=== PATIENT | female | born 1930 | race Caucasian/White ===

== ENCOUNTER 2016-08-21 17:44 | Emergency (ER) | payer MEDICARE, OTHER ==
--- NOTE | 2016-08-21 18:22 | REP ---
Clinical: Trauma . Findings: A left posterior occipital scalp hematoma is identified without underlying fracture, hemorrhage or contrecoup injury. Age-related atrophy with periventricular leukomalacia and microvascular ischemic changes appreciated. The ventricles and sulci are symmetric. Mckeon-white differentiation is maintained. There is no evidence for acute intracranial hemorrhage, mass/mass effect, pathology or infarction. No extra-axial fluid collection. Calvarium is intact. Paranasal sinuses and mastoid air cells are clear. Impression: Age related atrophy and microvascular ischemic changes. No acute intracranial hemorrhage, infarction, or mass/mass effect. Left posterior occipital scalp hematoma. Signed by Chapin Bhandari MD 08/21/2016 06:13 P
--- NOTE | 2016-08-21 19:02 | EDDOCDS ---
Nurse's Notes [facility] Name: Roxann Saavedra Age: 85 yrs Sex: Female : 1930 Arrival Date: 08/21/2016 Time: 17:44 Bed 12 Private MD: Diagnosis: Unspecified injury of head;Abrasion of scalp;Contusion of scalp Presentation: 08/21 17:45 Presenting complaint: EMS states: Patient fell, two inch laceration to back of head, jmb controlled bleeding. Patient reports just falling. Presenting complaint: Patient states: Patient reports going to go to [email or web address], parked car, foreign collection clerk gave her good news and she hoped around and fell down. Adult Sepsis Screening: The patient does not have new or worsening altered mentation. Patient's respiratory rate is less than 22. Systolic blood pressure is greater than 100. Patient has a qSOFA score of 0- Negative Sepsis Screen. Suicide/Homicide risk assessment- the patient denies having any suicidal and/or homicidal ideations and does not present with any other emotional, behavioral or mental health complaints. Status: Patient is not a fleet service clerk or dependent. Transition of care: patient was not received from another setting of care. 17:45 Acuity: LUIS Level 4 [facility] 17:45 Method Of Arrival: Ambulance [facility] Triage Assessment: 17:49 General: Appears in no apparent distress, Behavior is appropriate for age, cooperative. b Pain: Denies pain. Neurological: Level of Consciousness is awake, alert, obeys commands, Oriented to person, place, time, Prenatal Teacher are equal bilaterally Speech is normal, Facial symmetry appears normal, Facial symmetry: tongue is midline. Cardiovascular: Capillary refill < 3 seconds Heart tones present Pulses are all present. Rhythm is regular. Respiratory: Airway is patent Respiratory effort is even, unlabored, Respiratory pattern is regular, symmetrical. GI: Abdomen is non- distended Bowel sounds present X 4 quads. Abd is soft and non tender X 4 quads. Derm: Skin laceration to posterior head Skin is pink, warm & dry. Musculoskeletal: Range of motion intact in all extremities. Historical: - Allergies: PENICILLINS; - Home Meds: 1. Benicar 20 mg oral tab 1 tab once daily 2. simvastatin 20 mg Oral tab 1 tab once daily 3. Vitamin D3 2,000 unit oral cap daily 4. multivitamin Oral cap 1 tablet daily 5. Calcium + Vitamin D 600 mg calcium- 200 unit Oral tab daily - PMHx: Hypertension; hyperlipidemia; - PSHx: Hysterectomy; Cataract Surgery- Bilateral; - Social history: Smoking status: Patient states was never smoker of tobacco. No barriers to communication noted, The patient speaks fluent Swedish, Speaks appropriately for age. - Family history: Not pertinent. - : The pt / caregiver states he / she is not on anticoagulants. Home medication list is obtained from the patient. - Exposure Risk Screening:: None identified. Screenin:15 Screening information is obtained from the patient. Fall risk: At risk due to prior b history of falls. Assistance ADL's: requires no assistance with activities of daily living. Abuse/DV Screen: The patient / caregiver reports he/she is: not in a situation that causes fear, pain or injury. Nutritional screening: No deficits noted. home support is adequate. 19:00 Advance Directives: Currently, there is no health care proxy. There is no active DNR jmb order. There is no living will. There is no Power of Car [place]. Assessment: 18:12 General: Appears in no apparent distress, comfortable, Behavior is appropriate for age, jmb cooperative. Pain: Denies pain. Neurological: Level of Consciousness is awake, alert, obeys commands, Oriented to person, place, time, Prenatal Teacher are equal bilaterally Speech is normal, Facial symmetry appears normal, Facial symmetry: tongue is midline. Cardiovascular: Capillary refill < 3 seconds Heart tones present Pulses are all present. Rhythm is regular. Respiratory: Airway is patent Respiratory effort is even, unlabored, Respiratory pattern is regular, symmetrical, Breath sounds are clear bilaterally. GI: Abdomen is non- distended Bowel sounds present X 4 quads. Abd is soft and non tender X 4 quads. Derm: Skin is pink, warm & dry. Musculoskeletal: Range of motion intact in all extremities. 19:00 General: Patient instructed on discharge instructions. Patient asked if there were any [facility] questions regarding discharge, patient stated no. Patient signed discharge instructions. Patient discharged in stable condition. . Vital Signs: 17:56 BP 196 / 88 RA Sitting (man/lg); Pulse 91; Resp 18; Temp 98.2(O); Pulse Ox 96% on R/A; jmb Weight 65.32 kg (R); Height 5 ft. 0 in. (152.40 cm) (R); Pain 0/10; 19:00 BP 188 / 86; Pulse 88; Resp 18; Temp 98.0(O); Pulse Ox 97% on R/A; Pain 0/10; jmb 17:56 Body Mass Index 28.12 (65.32 kg, 152.40 cm) [facility] Vitals: 17:49 Log In Time N/A - ambulance arrival. [facility] ED Course: 17:44 Patient visited by Beverley Rivero Dispenser Operator. deg 17:44 Patient moved to Waiting deg 17:45 Patient moved to 12 deg 17:47 Triage Initiated jmb 17:50 [facility]. ke 17:50 Patient visited by Tad Tamez FNP. ke 17:50 Patient visited by Tad Tamez FNP. ke 18:13 Patient visited by Rey Holloway RN. b 18:15 The patient / caregiver is instructed regarding the plan of care and ED course. b 18:15 No IV's were initiated during this patient's visit. No procedures done that require b assistance. 18:34 Patient visited by Tad Tamez FNP. ke 18:41 CT Head Without Contrast Returned. EDMS Order Results: Radiology Order: CT Head Without Contrast Test: CT Head Without Contrast REASON FOR EXAMINATION: Trauma; Clinical: Trauma .; ; Findings:; A left posterior occipital scalp hematoma is identified without underlying; fracture, hemorrhage or contrecoup injury.; ; Age-related atrophy with periventricular leukomalacia and microvascular ischemic; changes appreciated. The ventricles and sulci are symmetric. Mckeon-white; differentiation is maintained. There is no evidence for acute intracranial; hemorrhage, mass/mass effect, pathology or infarction. No extra-axial fluid; collection. Calvarium is intact. Paranasal sinuses and mastoid air cells are; clear.; ; Impression:; Age related atrophy and microvascular ischemic changes.; No acute intracranial hemorrhage, infarction, or mass/mass effect.; Left posterior occipital scalp hematoma.; ; ; Signed by; Chapin Bhandari MD 08/21/2016 06:13 P; Outcome: 18:55 Discharge ordered by Provider. ke 19:00 Discharge Assessment: Patient awake, alert and oriented x 3. No cognitive and/or jmb functional deficits noted. Patient verbalized understanding of disposition instructions. Patient awake and alert. obeys commands, Oriented to person, place and time. Patient verbalized understanding of disposition instructions. Patient has no functional deficits. patient administered narcotics - no. The following High Risk Discharge criteria are identified: None. Discharged to home ambulatory, with friend. Condition: stable Condition: improved. Discharge instructions given to patient, Instructed on discharge instructions, follow up and referral plans. medication usage, Demonstrated understanding of instructions, medications, Pt was receptive of discharge instructions/ teaching. Prescriptions given X 1. CT Study completed. Property sent home with patient. 19:02 Patient left the ED. melanie Signatures: Dispatcher MedHost EDBeverley Carballo, Dispenser Operator Unit deg Tad Tamez, BOX ANNEALER Rey Hood,RN RN melanie CELESTINA
--- NOTE | 2016-08-21 19:02 | EDDOCDS ---
Physician Documentation [facility] Name: Roxann Saavedra Age: 85 yrs Sex: Female : 1930 Arrival Date: 08/21/2016 Time: 17:44 Bed 12 Private MD: Disposition: 08/21/16 18:55 Discharged to Home/Self Care. Impression: Unspecified injury of head, Abrasion of scalp, Contusion of scalp. - Condition is Stable. - Discharge Instructions: Abrasion, Head Injury, Adult. - Prescriptions for Reglan 10 mg Oral Tablet - take 1 tablet by ORAL route every 6 hours take 30 minutes before meals and at bedtime; 20 tablet. - Medication Reconciliation, Local Pharmacy Hours form. - Follow up: Private Physician; When: 2 - 3 days; Reason: Recheck today's complaints, Continuance of care. - Problem is new. - Symptoms are unchanged. Historical: - Allergies: PENICILLINS; - Home Meds: 1. Benicar 20 mg oral tab 1 tab once daily 2. simvastatin 20 mg Oral tab 1 tab once daily 3. Vitamin D3 2,000 unit oral cap daily 4. multivitamin Oral cap 1 tablet daily 5. Calcium + Vitamin D 600 mg calcium- 200 unit Oral tab daily - PMHx: Hypertension; hyperlipidemia; - PSHx: Hysterectomy; Cataract Surgery- Bilateral; - Social history: Smoking status: Patient states was never smoker of tobacco. No barriers to communication noted, The patient speaks fluent Slovak, Speaks appropriately for age. - Family history: Not pertinent. - : The pt / caregiver states he / she is not on anticoagulants. Home medication list is obtained from the patient. - Exposure Risk Screening:: None identified. Vital Signs: 08/21 17:56 BP 196 / 88 RA Sitting (man/lg); Pulse 91; Resp 18; Temp 98.2(O); Pulse Ox 96% on R/A; b Weight 65.32 kg / 144.01 lbs (R); Height 5 ft. 0 in. (152.40 cm) (R); Pain 0/10; 19:00 BP 188 / 86; Pulse 88; Resp 18; Temp 98.0(O); Pulse Ox 97% on R/A; Pain 0/10; b 17:56 Body Mass Index 28.12 (65.32 kg, 152.40 cm) melanie MDM: 18:01 CT Head Without Contrast Ordered. EDMS 18:53 Financial registration complete. [email or web address] Signatures: Dispatcher MedHost EDMS Tad Tamez, CLAYTON OSORIOP Rey Zapien,Cathleen Silvestre RN, Reg Reg ks16 MTDD
--- NOTE | 2016-08-23 20:03 | EDDOCDS ---
Physician Documentation [facility] Name: Roxann Saavedra Age: 85 yrs Sex: Female : 1930 Arrival Date: 08/21/2016 Time: 17:44 Bed 12 Private MD: Disposition: 08/21/16 18:55 Discharged to Home/Self Care. Impression: Unspecified injury of head, Abrasion of scalp, Contusion of scalp. - Condition is Stable. - Discharge Instructions: Abrasion, Head Injury, Adult. - Prescriptions for Reglan 10 mg Oral Tablet - take 1 tablet by ORAL route every 6 hours take 30 minutes before meals and at bedtime; 20 tablet. - Medication Reconciliation, Local Pharmacy Hours form. - Follow up: Private Physician; When: 2 - 3 days; Reason: Recheck today's complaints, Continuance of care. - Problem is new. - Symptoms are unchanged. Historical: - Allergies: PENICILLINS; - Home Meds: 1. Benicar 20 mg oral tab 1 tab once daily 2. simvastatin 20 mg Oral tab 1 tab once daily 3. Vitamin D3 2,000 unit oral cap daily 4. multivitamin Oral cap 1 tablet daily 5. Calcium + Vitamin D 600 mg calcium- 200 unit Oral tab daily - PMHx: Hypertension; hyperlipidemia; - PSHx: Hysterectomy; Cataract Surgery- Bilateral; - Social history: Smoking status: Patient states was never smoker of tobacco. No barriers to communication noted, The patient speaks fluent Serbian, Speaks appropriately for age. - Family history: Not pertinent. - : The pt / caregiver states he / she is not on anticoagulants. Home medication list is obtained from the patient. - Exposure Risk Screening:: None identified. Vital Signs: 08/21 17:56 BP 196 / 88 RA Sitting (man/lg); Pulse 91; Resp 18; Temp 98.2(O); Pulse Ox 96% on R/A; b Weight 65.32 kg / 144.01 lbs (R); Height 5 ft. 0 in. (152.40 cm) (R); Pain 0/10; 19:00 BP 188 / 86; Pulse 88; Resp 18; Temp 98.0(O); Pulse Ox 97% on R/A; Pain 0/10; b 17:56 Body Mass Index 28.12 (65.32 kg, 152.40 cm) melanie MDM: 18:01 CT Head Without Contrast Ordered. EDMS 18:53 Financial registration complete. [email or web address] 19:08 [facility] Payment Agreement was scanned into Smart Cube and attached to record. [email or web address] :41 T-Sheet-- Draft Copy was scanned into MEDHOST and attached to record. klr Signatures: Dispatcher [employer] EDMS Tad Tamez, INTERNAL MEDICINE PHYSICIAN ASSISTANT INTERNAL MEDICINE PHYSICIAN ASSISTANT Rey Zapien RN RN Cathleen Allison, Reg Reg ks16 Elizabeth Perez klr The chart was reviewed and I authenticate all verbal orders and agree with the evaluation and treatment provided.Attachments: 19:08 [facility] Payment Agreement [email or web address] :41 T-Sheet-- Draft Copy klr Chart Complete MTDD
--- NOTE | 2016-08-23 20:03 | EDDOCDS ---
Physician Documentation [facility] Name: Roxann Saavedra Age: 85 yrs Sex: Female : 1930 Arrival Date: 08/21/2016 Time: 17:44 Bed 12 Private MD: Disposition: 08/21/16 18:55 Discharged to Home/Self Care. Impression: Unspecified injury of head, Abrasion of scalp, Contusion of scalp. - Condition is Stable. - Discharge Instructions: Abrasion, Head Injury, Adult. - Prescriptions for Reglan 10 mg Oral Tablet - take 1 tablet by ORAL route every 6 hours take 30 minutes before meals and at bedtime; 20 tablet. - Medication Reconciliation, Local Pharmacy Hours form. - Follow up: Private Physician; When: 2 - 3 days; Reason: Recheck today's complaints, Continuance of care. - Problem is new. - Symptoms are unchanged. Historical: - Allergies: PENICILLINS; - Home Meds: 1. Benicar 20 mg oral tab 1 tab once daily 2. simvastatin 20 mg Oral tab 1 tab once daily 3. Vitamin D3 2,000 unit oral cap daily 4. multivitamin Oral cap 1 tablet daily 5. Calcium + Vitamin D 600 mg calcium- 200 unit Oral tab daily - PMHx: Hypertension; hyperlipidemia; - PSHx: Hysterectomy; Cataract Surgery- Bilateral; - Social history: Smoking status: Patient states was never smoker of tobacco. No barriers to communication noted, The patient speaks fluent Kiswahili, Speaks appropriately for age. - Family history: Not pertinent. - : The pt / caregiver states he / she is not on anticoagulants. Home medication list is obtained from the patient. - Exposure Risk Screening:: None identified. Vital Signs: 08/21 17:56 BP 196 / 88 RA Sitting (man/lg); Pulse 91; Resp 18; Temp 98.2(O); Pulse Ox 96% on R/A; b Weight 65.32 kg / 144.01 lbs (R); Height 5 ft. 0 in. (152.40 cm) (R); Pain 0/10; 19:00 BP 188 / 86; Pulse 88; Resp 18; Temp 98.0(O); Pulse Ox 97% on R/A; Pain 0/10; b 17:56 Body Mass Index 28.12 (65.32 kg, 152.40 cm) melanie MDM: 18:01 CT Head Without Contrast Ordered. EDMS 18:53 Financial registration complete. [email or web address] 19:08 [facility] Payment Agreement was scanned into ReferMe and attached to record. [email or web address] :41 T-Sheet-- Draft Copy was scanned into MEDHOST and attached to record. klr Signatures: Dispatcher [employer] EDMS Tad Tamez, FARM ASSISTANT FARM ASSISTANT Rey Zapien RN RN Cathleen Allison, Reg Reg ks16 Elizabeth Perez klr The chart was reviewed and I authenticate all verbal orders and agree with the evaluation and treatment provided.Attachments: 19:08 [facility] Payment Agreement [email or web address] :41 T-Sheet-- Draft Copy klr Chart Complete MTDD
--- NOTE | 2016-08-23 20:04 | EDDOCDS ---
Nurse's Notes [facility] Name: Roxann Saavedra Age: 85 yrs Sex: Female : 1930 Arrival Date: 08/21/2016 Time: 17:44 Bed 12 Private MD: Diagnosis: Unspecified injury of head;Abrasion of scalp;Contusion of scalp Presentation: 08/21 17:45 Presenting complaint: EMS states: Patient fell, two inch laceration to back of head, jmb controlled bleeding. Patient reports just falling. Presenting complaint: Patient states: Patient reports going to go to [email or web address], parked car, mobile mechanic gave her good news and she hoped around and fell down. Adult Sepsis Screening: The patient does not have new or worsening altered mentation. Patient's respiratory rate is less than 22. Systolic blood pressure is greater than 100. Patient has a qSOFA score of 0- Negative Sepsis Screen. Suicide/Homicide risk assessment- the patient denies having any suicidal and/or homicidal ideations and does not present with any other emotional, behavioral or mental health complaints. Status: Patient is not a service advisor or dependent. Transition of care: patient was not received from another setting of care. 17:45 Acuity: LUIS Level 4 [facility] 17:45 Method Of Arrival: Ambulance [facility] Triage Assessment: 17:49 General: Appears in no apparent distress, Behavior is appropriate for age, cooperative. b Pain: Denies pain. Neurological: Level of Consciousness is awake, alert, obeys commands, Oriented to person, place, time, Medical Reception Specialist are equal bilaterally Speech is normal, Facial symmetry appears normal, Facial symmetry: tongue is midline. Cardiovascular: Capillary refill < 3 seconds Heart tones present Pulses are all present. Rhythm is regular. Respiratory: Airway is patent Respiratory effort is even, unlabored, Respiratory pattern is regular, symmetrical. GI: Abdomen is non- distended Bowel sounds present X 4 quads. Abd is soft and non tender X 4 quads. Derm: Skin laceration to posterior head Skin is pink, warm & dry. Musculoskeletal: Range of motion intact in all extremities. Historical: - Allergies: PENICILLINS; - Home Meds: 1. Benicar 20 mg oral tab 1 tab once daily 2. simvastatin 20 mg Oral tab 1 tab once daily 3. Vitamin D3 2,000 unit oral cap daily 4. multivitamin Oral cap 1 tablet daily 5. Calcium + Vitamin D 600 mg calcium- 200 unit Oral tab daily - PMHx: Hypertension; hyperlipidemia; - PSHx: Hysterectomy; Cataract Surgery- Bilateral; - Social history: Smoking status: Patient states was never smoker of tobacco. No barriers to communication noted, The patient speaks fluent Italian, Speaks appropriately for age. - Family history: Not pertinent. - : The pt / caregiver states he / she is not on anticoagulants. Home medication list is obtained from the patient. - Exposure Risk Screening:: None identified. Screenin:15 Screening information is obtained from the patient. Fall risk: At risk due to prior b history of falls. Assistance ADL's: requires no assistance with activities of daily living. Abuse/DV Screen: The patient / caregiver reports he/she is: not in a situation that causes fear, pain or injury. Nutritional screening: No deficits noted. home support is adequate. 19:00 Advance Directives: Currently, there is no health care proxy. There is no active DNR jmb order. There is no living will. There is no Power of Tomato Paste Maker. Assessment: 18:12 General: Appears in no apparent distress, comfortable, Behavior is appropriate for age, jmb cooperative. Pain: Denies pain. Neurological: Level of Consciousness is awake, alert, obeys commands, Oriented to person, place, time, Medical Reception Specialist are equal bilaterally Speech is normal, Facial symmetry appears normal, Facial symmetry: tongue is midline. Cardiovascular: Capillary refill < 3 seconds Heart tones present Pulses are all present. Rhythm is regular. Respiratory: Airway is patent Respiratory effort is even, unlabored, Respiratory pattern is regular, symmetrical, Breath sounds are clear bilaterally. GI: Abdomen is non- distended Bowel sounds present X 4 quads. Abd is soft and non tender X 4 quads. Derm: Skin is pink, warm & dry. Musculoskeletal: Range of motion intact in all extremities. 19:00 General: Patient instructed on discharge instructions. Patient asked if there were any [facility] questions regarding discharge, patient stated no. Patient signed discharge instructions. Patient discharged in stable condition. . Vital Signs: 17:56 BP 196 / 88 RA Sitting (man/lg); Pulse 91; Resp 18; Temp 98.2(O); Pulse Ox 96% on R/A; jmb Weight 65.32 kg (R); Height 5 ft. 0 in. (152.40 cm) (R); Pain 0/10; 19:00 BP 188 / 86; Pulse 88; Resp 18; Temp 98.0(O); Pulse Ox 97% on R/A; Pain 0/10; jmb 17:56 Body Mass Index 28.12 (65.32 kg, 152.40 cm) [facility] Vitals: 17:49 Log In Time N/A - ambulance arrival. [facility] ED Course: 17:44 Patient visited by Beverley Rivero Seo Professional. deg 17:44 Patient moved to Waiting deg 17:45 Patient moved to 12 deg 17:47 Triage Initiated jmb 17:50 [facility]. ke 17:50 Patient visited by Tda Tamez FNP. ke 17:50 Patient visited by Tad Tamez FNP. ke 18:13 Patient visited by Rey Holloway RN. b 18:15 The patient / caregiver is instructed regarding the plan of care and ED course. [facility] 18:15 No IV's were initiated during this patient's visit. No procedures done that require b assistance. 18:34 Patient visited by Tad Tamez FNP. ke 18:41 CT Head Without Contrast Returned. EDMS 19:08 [facility] Payment Agreement was scanned into Slyce and attached to record. ks16 22:41 T-Sheet-- Draft Copy was scanned into Slyce and attached to record. klr Order Results: Radiology Order: CT Head Without Contrast Test: CT Head Without Contrast REASON FOR EXAMINATION: Trauma; Clinical: Trauma .; ; Findings:; A left posterior occipital scalp hematoma is identified without underlying; fracture, hemorrhage or contrecoup injury.; ; Age-related atrophy with periventricular leukomalacia and microvascular ischemic; changes appreciated. The ventricles and sulci are symmetric. Mckeon-white; differentiation is maintained. There is no evidence for acute intracranial; hemorrhage, mass/mass effect, pathology or infarction. No extra-axial fluid; collection. Calvarium is intact. Paranasal sinuses and mastoid air cells are; clear.; ; Impression:; Age related atrophy and microvascular ischemic changes.; No acute intracranial hemorrhage, infarction, or mass/mass effect.; Left posterior occipital scalp hematoma.; ; ; Signed by; Chapin Bhandari MD 08/21/2016 06:13 P; Outcome: 18:55 Discharge ordered by Provider. ronn 19:00 Discharge Assessment: Patient awake, alert and oriented x 3. No cognitive and/or jmb functional deficits noted. Patient verbalized understanding of disposition instructions. Patient awake and alert. obeys commands, Oriented to person, place and time. Patient verbalized understanding of disposition instructions. Patient has no functional deficits. patient administered narcotics - no. The following High Risk Discharge criteria are identified: None. Discharged to home ambulatory, with friend. Condition: stable Condition: improved. Discharge instructions given to patient, Instructed on discharge instructions, follow up and referral plans. medication usage, Demonstrated understanding of instructions, medications, Pt was receptive of discharge instructions/ teaching. Prescriptions given X 1. CT Study completed. Property sent home with patient. 19:02 Patient left the ED. melanie Signatures: Dispatcher MedHost EDMS Beverley Rivero, Seo Professional Unit deg Tad Tamez, ARMY HELICOPTER PILOT ARMY HELICOPTER PILOT Rey Zapien, RN RN Cathleen Allison, Reg Reg [email or web address] Elizabeth Perez Chart Complete CELESTINA
== END 2016-08-21 19:02 | disposition home or self-care (01) ==
LOC: M ED 17:44
DX: S00.93XA Contusion of unspecified part of head, initial encounter (principal); S00.91XA Abrasion of unspecified part of head, initial encounter; W01.0XXA Fall on same level from slipping, tripping and stumbling without subsequent striking against object, initial encounter; Y92.22 Religious institution as the place of occurrence of the external cause; Y93.9 Activity, unspecified; Y99.9 Unspecified external cause status; I10 Essential (primary) hypertension; E78.5 Hyperlipidemia, unspecified; Z79.899 Other long term (current) drug therapy; Z88.0 Allergy status to penicillin

== ENCOUNTER 2017-10-30 07:41 | Emergency (ER) | payer MEDICARE, OTHER | END 2017-10-30 08:34 | disposition home or self-care (01) | LOC: M ED 07:41 | DX: I10 Essential (primary) hypertension (principal); L21.9 Seborrheic dermatitis, unspecified; E78.5 Hyperlipidemia, unspecified; Z88.0 Allergy status to penicillin; Z91.018 Allergy to other foods; Z79.899 Other long term (current) drug therapy | CPT/HCPCS: 99282 ==

== ENCOUNTER 2018-04-30 08:19 | Emergency (ER) | payer MEDICARE, OTHER ==
[2018-04-30 09:17] LABS: BASO # 0.1 10^3/uL (0.0-0.2); BASO % 0.4 % (0.0-1.0); EOS # 0.5 10^3/uL (0.0-0.50); EOS % 2.8 % (0.0-3.0); HEMATOCRIT 35.8 % (36.0-47.0); IMMATURE GRANULOCYTE % 0.6 % (0-3.0); LYMPH # 1.1 10^3/uL (1.5-4.5); LYMPH % 6.6 % (24.0-44.0); MEAN CORPUSCULAR HEMOGLOBIN 31.6 pg (27.0-33.0); MEAN CORPUSCULAR HGB CONC 33.5 g/dl (32.0-36.5); MEAN CORPUSCULAR VOLUME 94.2 fl (80.0-96.0); MONO # 1.5 10^3/uL (0.0-0.8); NEUTROPHILS # 13.1 10^3/uL (1.8-7.7); NEUTROPHILS % 80.6 % (36.0-66.0); PLATELET COUNT, AUTOMATED 500 10^3/uL (150-450); RED CELL DISTRIBUTION WIDTH 12.2 % (11.5-14.5); WHITE BLOOD COUNT 16.2 10^3/uL (4.0-10.0)
[2018-04-30 09:25] LABS: ALBUMIN 3.3 GM/DL (3.2-5.2); ALBUMIN/GLOBULIN RATIO 0.89 (1.00-1.93); ALKALINE PHOSPHATASE 116 U/L (45-117); ALT/SGPT 11 U/L (12-78); AMYLASE 42 U/L (25-115); ANION GAP 9 MEQ/L (8-16); AST/SGOT 7 U/L (7-37); BILIRUBIN,DIRECT 0.1 MG/DL (0.0-0.2); BILIRUBIN,TOTAL 0.5 MG/DL (0.2-1.0); BLOOD UREA NITROGEN 14 MG/DL (7-18); CALCIUM LEVEL 8.7 MG/DL (8.8-10.2); CARBON DIOXIDE LEVEL 25 MEQ/L (21-32); CHLORIDE LEVEL 102 MEQ/L (98-107); CK-MB VALUE MASS < 1.0 NG/ML (<3.6); CPK CREATINE PHOSPHOKINASE 22 U/L (26-192); CREATININE FOR GFR 1.48 MG/DL (0.55-1.30); GLOMERULAR FILTRATION RATE 35.5 (>32); GLUCOSE, FASTING 108 MG/DL (70-100); LIPASE 120 U/L (73-393); MB/CK RELATIVE INDEX 4.55 (< OR =4); POTASSIUM SERUM 3.9 MEQ/L (3.5-5.1); SODIUM LEVEL 136 MEQ/L (136-145); TROPONIN I < 0.02 NG/ML (< 0.10)
[2018-04-30 09:28] LABS: LACTIC ACID SEPSIS PROTOCOL 1.4 MMOL/L (0.4-2.0)
[2018-04-30] MEDS: NS 1,000 ML IV (10:04)
[2018-04-30 10:50] LABS: AMORPHOUS SEDIMENT RFX MODERATE (NEGATIVE); KETONE, URINE AUTO RFX TRACE mg/dL (NEGATIVE); MUCUS, URINE RFX MODERATE (NEGATIVE); NITRITE, URINE AUTO RFX NEGATIVE (NEGATIVE); RBC, URINE AUTO RFX 1 /HPF (0-3); SPECIFIC GRAVITY UR AUTO RFX 1.017 (1.002-1.035); SQUAM EPITHELIAL CELL UR AURFX 26 /HPF (0-6)
[2018-04-30 11:15] LABS: LEUKOCYTE ESTERASE UR AUTO RFX TRACE (NEGATIVE); WBC, URINE AUTO RFX 12 /HPF (0-3)
[2018-04-30] MEDS ORDERED: ISOVUE-370 76% 100ML VIAL (Q9967) As Ordered (11:45)
== END 2018-04-30 13:31 | disposition home or self-care (01) ==
LOC: M ED 08:19
DX: K57.32 Diverticulitis of large intestine without perforation or abscess without bleeding (principal); K64.9 Unspecified hemorrhoids; N12 Tubulo-interstitial nephritis, not specified as acute or chronic; B37.3 Candidiasis of vulva and vagina; I10 Essential (primary) hypertension; E78.00 Pure hypercholesterolemia, unspecified; Z88.0 Allergy status to penicillin; Z91.018 Allergy to other foods; Z79.899 Other long term (current) drug therapy
CPT/HCPCS: Q9967

== ENCOUNTER → 2019-09-18 | Outpatient (CLI) | payer MEDICARE ==
[~2019-09-18] MED LIST: AMLO2.5T3 PO; B121000T PO; CALC600T60 PO; CIPR-249 PO; CLOT1CRE27 TOP; COQ-100C2 PO; CORT1OIN2 TOP; FLAG500T PO; FLUC150T PO; HYDR-3363 PO; KETO2CR EXT; LEVO500T3; METR0.7534; MUPI2OI; OLME40TA PO; PREP1CRE TP; SIMV20TA22 PO; VITA200016 PO
[2019-09-18 15:59] LABS: BASO # 0.1 10^3/uL (0.0-0.2); BASO % 0.8 % (0.0-1.0); EOS # 0.6 10^3/uL (0.0-0.5); EOS % 5.1 % (0.0-3.0); HEMATOCRIT 39.5 % (36.0-47.0); HEMOGLOBIN 12.9 g/dl (12.0-15.5); LYMPH # 1.5 10^3/uL (1.5-5.0); LYMPH % 12.6 % (24.0-44.0); MEAN CORPUSCULAR HEMOGLOBIN 30.1 pg (27.0-33.0); MEAN CORPUSCULAR HGB CONC 32.7 g/dl (32.0-36.5); MEAN CORPUSCULAR VOLUME 92.3 fl (80.0-96.0); MONO % 7.8 % (0.0-5.0); NEUTROPHILS # 8.9 10^3/uL (1.5-8.5); NEUTROPHILS % 73.4 % (36.0-66.0); PLATELET COUNT, AUTOMATED 951 10^3/uL (150-450); RED BLOOD COUNT 4.28 10^6/uL (4.00-5.40); WHITE BLOOD COUNT 12.2 10^3/uL (4.0-10.0)
== END ==
LOC: M LRY 14:43
PROVIDERS: ATTEND Physician Assistant
DX: M81.0 Age-related osteoporosis without current pathological fracture (principal); Z79.899 Other long term (current) drug therapy

== ENCOUNTER → 2019-09-20 | Outpatient (CLI) | payer MEDICARE ==
[2019-09-20 16:38] LABS: BASO # 0.1 10^3/uL (0.0-0.2); BASO % 0.6 % (0.0-1.0); EOS # 0.8 10^3/uL (0.0-0.5); EOS % 6.9 % (0.0-3.0); HEMATOCRIT 38.3 % (36.0-47.0); HEMOGLOBIN 12.4 g/dl (12.0-15.5); LYMPH # 1.7 10^3/uL (1.5-5.0); LYMPH % 14.2 % (24.0-44.0); MEAN CORPUSCULAR HEMOGLOBIN 29.9 pg (27.0-33.0); MEAN CORPUSCULAR HGB CONC 32.4 g/dl (32.0-36.5); MEAN CORPUSCULAR VOLUME 92.3 fl (80.0-96.0); MONO # 0.8 10^3/uL (0.0-0.8); MONO % 6.5 % (0.0-5.0); NEUTROPHILS # 8.6 10^3/uL (1.5-8.5); NEUTROPHILS % 71.3 % (36.0-66.0); PLATELET COUNT, AUTOMATED 947 10^3/uL (150-450); RED BLOOD COUNT 4.15 10^6/uL (4.00-5.40)
== END ==
LOC: M LRY 13:57
PROVIDERS: ATTEND Physician Assistant
DX: M81.0 Age-related osteoporosis without current pathological fracture (principal); I10 Essential (primary) hypertension

== ENCOUNTER → 2019-10-22 | Outpatient (CLI) | payer MEDICARE ==
[~2019-10-22] MED LIST changes: +HYDR500C3 PO; +NYSTOI TOP
[2019-10-22 17:31] LABS: BASO # 0.1 10^3/uL (0.0-0.2); EOS # 0.6 10^3/uL (0.0-0.5); HEMATOCRIT 39.7 % (36.0-47.0); LYMPH # 1.4 10^3/uL (1.5-5.0); LYMPH % 12.8 % (24.0-44.0); MEAN CORPUSCULAR HEMOGLOBIN 30.2 pg (27.0-33.0); MEAN CORPUSCULAR HGB CONC 32.7 g/dl (32.0-36.5); MEAN CORPUSCULAR VOLUME 92.1 fl (80.0-96.0); MONO # 0.6 10^3/uL (0.0-0.8); MONO % 6.1 % (0.0-5.0); NEUTROPHILS # 7.8 10^3/uL (1.5-8.5); NEUTROPHILS % 73.7 % (36.0-66.0); PLATELET COUNT, AUTOMATED 985 10^3/uL (150-450); RED BLOOD COUNT 4.31 10^6/uL (4.00-5.40); WHITE BLOOD COUNT 10.6 10^3/uL (4.0-10.0)
[2019-10-22 17:36] LABS: ALBUMIN 3.9 GM/DL (3.2-5.2); BILIRUBIN,TOTAL 0.5 MG/DL (0.2-1.0); CALCIUM LEVEL 9.8 MG/DL (8.8-10.2); CREATININE FOR GFR 1.68 MG/DL (0.55-1.30); GLOMERULAR FILTRATION RATE 30.6 (>32); POTASSIUM SERUM 4.7 MEQ/L (3.5-5.1); TOTAL PROTEIN 7.1 GM/DL (6.4-8.2)
== END ==
LOC: M LRY 10:51
PROVIDERS: ATTEND Internal Medicine Medical Oncology
DX: D69.6 Thrombocytopenia, unspecified (principal)

== ENCOUNTER → 2019-12-04 | Outpatient (CLI) | payer MEDICARE ==
[~2019-12-04] MED LIST changes: +ASPI81TA26 PO; +FLUC200T2 PO; +HYDR26CR TP; +HYDR500C PO; -PREP1CRE TP
[2019-12-04 12:38] LABS: BASO # 0.1 10^3/uL (0.0-0.2); BASO % 1.1 % (0.0-1.0); EOS # 0.5 10^3/uL (0.0-0.5); EOS % 6.5 % (0.0-3.0); HEMATOCRIT 37.2 % (36.0-47.0); HEMOGLOBIN 12.2 g/dl (12.0-15.5); LYMPH # 1.5 10^3/uL (1.5-5.0); LYMPH % 18.5 % (24.0-44.0); MEAN CORPUSCULAR HEMOGLOBIN 30.7 pg (27.0-33.0); MEAN CORPUSCULAR HGB CONC 32.8 g/dl (32.0-36.5); MEAN CORPUSCULAR VOLUME 93.7 fl (80.0-96.0); MONO # 0.7 10^3/uL (0.0-0.8); MONO % 8.4 % (0.0-5.0); NEUTROPHILS # 5.1 10^3/uL (1.5-8.5); PLATELET COUNT, AUTOMATED 607 10^3/uL (150-450); RED BLOOD COUNT 3.97 10^6/uL (4.00-5.40); WHITE BLOOD COUNT 7.8 10^3/uL (4.0-10.0)
[2019-12-04 13:08] LABS: BILIRUBIN,TOTAL 0.4 MG/DL (0.2-1.0); CALCIUM LEVEL 9.6 MG/DL (8.8-10.2); CREATININE FOR GFR 1.78 MG/DL (0.55-1.30); GLOMERULAR FILTRATION RATE 28.6 (>32); POTASSIUM SERUM 5.3 MEQ/L (3.5-5.1); TOTAL PROTEIN 7.3 GM/DL (6.4-8.2)
== END ==
LOC: M LRY 09:51
PROVIDERS: ATTEND Internal Medicine Medical Oncology
DX: D69.6 Thrombocytopenia, unspecified (principal)

== ENCOUNTER → 2020-01-01 | Outpatient (CLI) | payer MEDICARE ==
[~2020-01-01] MED LIST changes: +ANAG0.5C2 PO; +ASCO500T PO; +DOXY-350 PO; +HYDR-643 PO; +OLME20TA2 PO
[2020-01-01 16:59] LABS: BASO # 0.1 10^3/uL (0.0-0.2); BASO % 0.9 % (0.0-1.0); EOS # 0.6 10^3/uL (0.0-0.5); EOS % 7.6 % (0.0-3.0); HEMATOCRIT 33.4 % (36.0-47.0); LYMPH # 1.3 10^3/uL (1.5-5.0); LYMPH % 16.8 % (24.0-44.0); MEAN CORPUSCULAR HEMOGLOBIN 32.4 pg (27.0-33.0); MEAN CORPUSCULAR HGB CONC 32.9 g/dl (32.0-36.5); MEAN CORPUSCULAR VOLUME 98.5 fl (80.0-96.0); MONO # 0.6 10^3/uL (0.0-0.8); MONO % 7.1 % (0.0-5.0); NEUTROPHILS # 5.4 10^3/uL (1.5-8.5); NEUTROPHILS % 67.2 % (36.0-66.0); PLATELET COUNT, AUTOMATED 544 10^3/uL (150-450); RED BLOOD COUNT 3.39 10^6/uL (4.00-5.40); WHITE BLOOD COUNT 7.9 10^3/uL (4.0-10.0)
[2020-01-01 17:52] LABS: ALBUMIN 3.8 GM/DL (3.2-5.2); BILIRUBIN,TOTAL 0.5 MG/DL (0.2-1.0); CALCIUM LEVEL 9.5 MG/DL (8.8-10.2); CREATININE FOR GFR 1.62 MG/DL (0.55-1.30); GLOMERULAR FILTRATION RATE 31.8 (>32); POTASSIUM SERUM 5.1 MEQ/L (3.5-5.1); TOTAL PROTEIN 6.7 GM/DL (6.4-8.2)
== END ==
LOC: M LRY 13:01
PROVIDERS: ATTEND Internal Medicine Hematology & Oncology
DX: D69.6 Thrombocytopenia, unspecified (principal)

== ENCOUNTER → 2020-01-14 | Outpatient (REF) | payer MEDICARE, OTHER ==
[~2020-01-14] MED LIST changes: -ANAG0.5C2 PO; -ASCO500T PO; -HYDR-643 PO; -OLME20TA2 PO
== END ==
LOC: M LAB REF 18:39
PROVIDERS: ATTEND Dermatology
DX: L57.0 Actinic keratosis (principal)

== ENCOUNTER → 2020-03-12 | Outpatient (CLI) | payer MEDICARE, OTHER ==
[~2020-03-12] MED LIST changes: +ANAG0.5C2 PO; +ASCO500T PO; +HYDR-643 PO; +OLME20TA2 PO
--- NOTE | 2020-03-27 09:09 | REP ---
RENAL ULTRASOUND: 03/12/20 TECHNIQUE: Real time pina scale and color Doppler evaluation using curved array transducer. FINDINGS: The right kidney measures 7.1 x 3.6 x 2.8cm and appears echogenic with increased central sinus fat suggesting chronic renal disease. No hydronephrosis, nephrolithiasis, cystic or renal mass lesion. The left kidney measures 9.1 x 4.2 x 3.7cm with mildly increased central sinus fat. No hydronephrosis, nephrolithiasis, cystic or renal mass lesion. The bladder is unremarkable. Doppler interrogation demonstrates parvus tardus wave patterns bilaterally with normal renal aortic ratios. RIGHT KIDNEY: Peak renal artery velocity: 89 cm/s Renal aortic ratio: 1.7 Resistive indices: 0.61-0.70 Acceleration times: 0.022-0.050 LEFT KIDNEY: Peak renal artery velocity: 96 cm/s Renal aortic ratio: 1.8 Resistive indices: 0.69-0.74 Acceleration times: 0.025-0.066 IMPRESSION: 1. Evidence for chronic medical renal disease and atrophy (right grater than left). No hydronephrosis. 2. No definite evidence for renal arterial stenosis. No vessel disease cannot be excluded. MTDD
== END ==
LOC: M RAD 08:17
PROVIDERS: ATTEND Internal Medicine Nephrology
DX: N18.4 Chronic kidney disease, stage 4 (severe) (principal); I12.9 Hypertensive chronic kidney disease with stage 1 through stage 4 chronic kidney disease, or unspecified chronic kidney disease; D47.3 Essential (hemorrhagic) thrombocythemia

== ENCOUNTER → 2020-03-20 | Outpatient (REF) | payer MEDICARE, OTHER ==
[2020-03-20 19:39] LABS: C REACTIVE PROTEIN QUANTITATIV < 0.30 MG/DL (0.00-0.30); COMPLEMENT C3 117 MG/DL (90-180); COMPLEMENT C4 25 MG/DL (10-40); TOTAL PROTEIN 6.8 GM/DL (6.4-8.2)
[2020-03-20 20:01] LABS: HEPATITIS B SURFACE ANTIGEN NEGATIVE (NEGATIVE)
[2020-03-20 20:29] LABS: HEPATITIS B CORE ANTIBODY IGM NEGATIVE (NEGATIVE); HEPATITIS C VIRUS ABY INDEX 0.1 INDEX (<0.8)
[2020-03-21 12:36] LABS: HEPATITIS B SURFACE ANTIBODY NEGATIVE (POSITIVE)
[2020-03-25 14:44] LABS: ALBUMIN % 59.7 % (55.8-66.1); ALPHA-1-GLOBULIN % 5.3 % (2.9-4.9); ALPHA-2-GLOBULINS % 9.7 % (7.1-11.8)
[2020-03-25 14:45] LABS: ALBUMIN 4.06 GM/DL (3.29-5.55); ALPHA-1-GLOBULINS 0.36 GM/DL (0.17-0.41); ALPHA-2-GLOBULINS 0.66 GM/DL (0.42-0.99); BETA-1-GLOBULINS 0.46 GM/DL (0.28-0.60); BETA-1-GLOBULINS % 6.7 % (4.7-7.2); BETA-2-GLOBULINS 0.36 GM/DL (0.19-0.55); BETA-2-GLOBULINS % 5.3 % (3.2-6.5); GAMMA GLOBULIN % 13.3 % (11.1-18.8)
[2020-03-25 16:08] LABS: ANCA-ATYPICAL <1:20 titer (Neg:<1:20); ANTI DS-DNA AB Negative (Negative); ANTI-GLOMERULAR BASEMENT MEMB 3 units (0-20); ANTINUCLEAR ANTIBODIES DIRECT Negative (Negative); CYTOPLASMIC NEUTROP AB ANCA-C <1:20 titer (Neg:<1:20); FREE KAPPA LIGHT CHAINS SERUM 39.8 mg/L (3.3-19.4); KAPPA/LAMBDA RATIO SERUM 1.59 (0.26-1.65); PERINUCLEAR AB ANCA-P <1:20 titer (Neg:<1:20)
== END ==
LOC: M LAB REF 17:00
PROVIDERS: ATTEND Internal Medicine Nephrology
DX: R80.9 Proteinuria, unspecified (principal)

== ENCOUNTER 2020-04-25 12:50 | Outpatient (RCR) | payer MEDICARE, OTHER | END 2020-04-26 | LOC: M PT 12:50 | PROVIDERS: ATTEND Dermatology | DX: R21 Rash and other nonspecific skin eruption (principal) ==

== ENCOUNTER → 2020-05-26 | Outpatient (RCR) | payer MEDICARE, OTHER | LOC: M PT 04-28 13:23 | PROVIDERS: ATTEND Dermatology | DX: R21 Rash and other nonspecific skin eruption (principal) ==

== ENCOUNTER 2020-06-02 13:00 | Outpatient (RCR) | payer MEDICARE, OTHER | END 2020-06-26 | LOC: M PT 13:00 | PROVIDERS: ATTEND Dermatology | DX: Z51.89 Encounter for other specified aftercare (principal); R21 Rash and other nonspecific skin eruption ==